=== PATIENT | female | born 1960 | race Caucasian/White ===

== ENCOUNTER 2017-11-26 08:59 | Day surgery (SDC) | payer OTHER ==
[2017-11-26] MEDS ORDERED: LIDOCAINE 4% SOLUTION 50 ML BTL (10:18)
[2017-11-26] MEDS ORDERED: MIDAZOLAM 1 MG/ML 2 ML INJ ×2 (11:10)
[2017-11-26] MEDS ORDERED: FENTAnyl 50 MCG/ML VIAL (11:10)
== END 2017-11-26 13:31 | disposition home or self-care (01) ==
LOC: GIL 08:59
DX: K29.30 Chronic superficial gastritis without bleeding (principal); K57.90 Diverticulosis of intestine, part unspecified, without perforation or abscess without bleeding; E11.9 Type 2 diabetes mellitus without complications
CPT/HCPCS: 43239; 82962; 88305; 88312